=== PATIENT | female | born 1995 | race Caucasian/White ===

== ENCOUNTER 2023-10-17 05:55 | Inpatient (IN) | payer MEDICAID ==
[~2023-10-17] VITALS: Ht 165.1 cm; Wt 71.4 kg
[2023-10-17] VITALS (18 sets, daily range): BP systolic 92–137; BP diastolic 51–94; PULSE 49–99; TEMP 97.5–98.3
[~2023-10-17 05:55] MED LIST: CREON 120000 U-1 ECC PO; IBU600 MG PO; LR 1,000 ML IV SCH; Ondansetron 4 MG/2 ML VIAL IV SCH; PRENATAL TABLET PO; PROAIR HFA0.09 MG/AC; PULMOZYME2.5 MG/2.5 IH; ROXICODONE 55 MG/TAB PO; TRIKAFTA 100-51 EACH PO
[2023-10-17] MEDS ORDERED: LR 1,000 ML IV SCH (06:45)
[2023-10-17 06:49] LABS: BASO % 0.6 % (0.0-2.0); EOS # 0.2 K/mm3 (0.0-0.7); EOS % 3.2 % (0.0-4.0); GRAN # 3.1 K/mm3 (1.4-6.5); GRAN % 57.7 % (42.2-75.2); HEMOGLOBIN 12.1 g/dl (12.5-16.0); LYMPH # 1.5 K/mm3 (1.2-3.4); LYMPH % 28.5 % (20.0-51.0); MEAN CELL VOLUME 96 fl (80.0-100.0); MEAN CORPUSCULAR HEMOGLOBIN 32 pg (27-31); MEAN CORPUSCULAR HGB CONC 34 g/dl (33.0-37.0); MEAN PLATELET VOLUME 10.1 fl (7.4-10.4); MONO # 0.5 K/mm3 (0.1-0.6); MONO % 9.6 % (1.7-9.3); PLATELET COUNT 208 K/mm3 (130-400); RED BLOOD COUNT 3.74 M/mm3 (4.10-5.30); REDCELL DISTRIBUTION WIDTH-CV 12.7 % (11.5-14.5)
[2023-10-17] MEDS ORDERED: Oxytocin 10 UNITS/ML VIAL ONE (06:58)
[2023-10-17] MEDS ORDERED: dexAMETHasone 10 MG/ML VIAL ONE (06:58)
[2023-10-17] MEDS ORDERED: Ondansetron 4 MG/2 ML VIAL ONE (06:58)
[2023-10-17] MEDS ORDERED: Ketorolac 30 MG/ML VIAL ONE (06:58)
[2023-10-17] MEDS ORDERED: NS 10 ML IV ONE (06:58)
[2023-10-17] MEDS ORDERED: Phenylephrine 10 MG/ML VIAL ONE (07:35)
--- NOTE | 2023-10-17 07:57 | NUR ---
0600 PT PRESENTS TO UNIT FOR SCHEDULED REPEAT . PT CALM AND SPOUSE WITH HER FOR SUPPORT.
[2023-10-17] MEDS ORDERED: LR 1,000 ML IV ONE (08:00)
[2023-10-17] MEDS ORDERED: ePHEDrine 50 MG/ML VIAL ONE (08:13)
[2023-10-17] MEDS ORDERED: Magnes Hydrox (MOM) 80 MG/ML 30 ML CUP PO PRN (08:45)
[2023-10-17] MEDS ORDERED: LR 1,000 ML IV PRN (08:45)
[2023-10-17] MEDS ORDERED: Ondansetron 4 MG/2 ML VIAL IV PRN (08:45)
[2023-10-17] MEDS ORDERED: Naloxone 0.4 MG/ML VIAL IV PRN (08:45)
[2023-10-17] MEDS ORDERED: Acetaminophen 500 MG TAB PO SCH (08:45)
[2023-10-17] MEDS ORDERED: Morphine 4 MG/ML VIAL IV PRN (08:45)
[2023-10-17] MEDS ORDERED: Loratadine 10 MG TAB PO PRN (08:45)
[2023-10-17] MEDS ORDERED: Measles/Mumps/Rubella Virus Vaccine Live w Diluent 0.5 ML VIAL SQ SCH (08:45)
[2023-10-17] MEDS ORDERED: oxyCODONE 5 MG TAB PO PRN (08:45)
--- NOTE | 2023-10-17 08:49 | NUR ---
VIABLE MALE INFANT BORN VIA REPEAT SECTION. MDX2, RNX3 IN OR.
--- NOTE | 2023-10-17 09:00 | NUR ---
PACU DISCHARGE CRITERIA MET. BABE IN PT ARMS AT THIS TIME, +BONDING NOTED, VSS, FUNDUS FIRM, MINIMAL BLEEDING, ABD DRESSING CDI, PT TO ROOM 213 PER BED BY THIS NURSE, ORIENTED TO RM, CALL LIGHT AND PLAN OF CARE, ICE CHIPS AND ICE WATER GIVEN WITH WARM BLANKET, AT SIDE, BABE TO RIGHT BREAST AT 0905, GOOD LATCH, CRADLE HOLD.
--- NOTE | 2023-10-17 10:00 | NUR ---
HOLDING BABE, ICE WATER GIVEN WITH CRACKERS, TOLERATING PO WELL ABLE TO MOVE LEGS, DENIES PAIN, FOB IN ROOM.
--- NOTE | 2023-10-17 10:59 | NUR ---
TYLENOL GIVEN 1000MG PER ORDER, PAIN AT 4 ON -10, ENCOURAGED ORDERING LIGHT LUNCH, DAMARIS CARE DONE, ABDOMINAL BINDER ON.
--- NOTE | 2023-10-17 14:30 | NUR ---
PAIN RATED A 4 ON 1-10 SCALE, AMI REZA PER ORDER, PT ASSISTED TO DANGLE AT BEDSIDE, TOLERATES WELL, MOVING WELL IN BED ALTHOUGH LEGS STILL FEELING "ASLEEP", ASSISTED BACK TO BED AND BABE IN MOMS ARMS PER REQUEST.
[2023-10-17] MEDS ORDERED: Ibuprofen 600 MG TAB PO SCH (14:33)
[2023-10-17] MEDS ORDERED: Sennosides/Docusate 8.6-50 MG TAB PO SCH (17:00)
--- NOTE | 2023-10-17 17:00 | NUR ---
PT UP TO BATHROOM, REQUESTS ABD BINDER OFF, UP TO BATHROOM WITH NURSES X2, DOUGLAS DC'D WITH 10CC BALLOON DEFLATED, DAMARIS CARE DONE, SCANT BLEEDING ON PAD, RET TO BED, DENIES NAUSEA OR DIZZINESS, UNDERSTANDS TO CALL FOR FIRST 3 VOID CHECKS, SITTING UP IN BED WITH SUPPER AND BABE IN ARMS.
[2023-10-17] MEDS ORDERED: traZODone 50 MG TAB PO PRN (21:00)
[2023-10-18 02:35] VITALS: BP 98/58; PULSE 54; TEMP 97.7
[2023-10-18 08:00] VITALS: BP 105/73; PULSE 64
== END 2023-10-18 11:28 | disposition home or self-care (01) | DRG 788 ==
LOC: OB 05:55
PROVIDERS: ADMIT Obstetrics & Gynecology
PROC: 10D00Z1 Extraction of Products of Conception, Low, Open Approach (ICD-10-PCS; principal; 2023-10-17)
DX: O34.211 Maternal care for low transverse scar from previous cesarean delivery (principal); Z3A.38 38 weeks gestation of pregnancy; Z37.0 Single live birth; Z14.1 Cystic fibrosis carrier; Z88.2 Allergy status to sulfonamides; Z88.8 Allergy status to other drugs, medicaments and biological substances
CPT/HCPCS: J0665; J0690; J1100; J1885; J2371; J2405; J2590; J7120